=== PATIENT | male | born 1950 | race Caucasian/White ===

== ENCOUNTER → 2016-09-18 | Outpatient (CLI) | payer MEDICARE, OTHER ==
[~2016-09-18] MED LIST: ASPI1TAB PO; ATEN25TA PO; ATOR40TA PO; CHLO25TA PO; DIGO0.127 PO; DOXA1TAB72 PO; HCTZ/LOSARTAN PO; METF1000 PO; SITA50TAB PO; [UNRECOGNIZED DRUG - OTHER] TOP
[2016-09-18 18:29] LABS: ALBUMIN 4.2 GM/DL (3.2-5.2); ALKALINE PHOSPHATASE 61 U/L (45-117); ALT/SGPT 42 U/L (12-78); ANION GAP 7 MEQ/L (8-16); AST/SGOT 17 U/L (15-37); BILIRUBIN,DIRECT 0.3 MG/DL (0.0-0.2); BILIRUBIN,TOTAL 0.8 MG/DL (0.2-1.0); BLOOD UREA NITROGEN 16 MG/DL (7-18); CALCIUM LEVEL 8.9 MG/DL (8.8-10.2); CARBON DIOXIDE LEVEL 30 MEQ/L (21-32); CHLORIDE LEVEL 104 MEQ/L (98-107); CHOLESTEROL LEVEL 115 MG/DL (<200); CREATININE FOR GFR 0.91 MG/DL (0.70-1.30); GLOMERULAR FILTRATION RATE > 60.0 (>49); GLUCOSE, FASTING 120 MG/DL (80-110); MAGNESIUM LEVEL 1.8 MG/DL (1.8-2.4); PHOSPHORUS LEVEL 3.7 MG/DL (2.5-4.9); POTASSIUM SERUM 4.2 MEQ/L (3.5-5.1); SODIUM LEVEL 141 MEQ/L (136-145); TRIGLYCERIDES LEVEL 120 MG/DL (<150)
[2016-09-18 18:35] LABS: MEAN CORPUSCULAR HEMOGLOBIN 28.2 pg (27.0-33.0); MEAN CORPUSCULAR HGB CONC 32.6 g/dl (32.0-36.5); MEAN CORPUSCULAR VOLUME 86.7 fl (80.0-96.0); RED CELL DISTRIBUTION WIDTH 14.2 % (11.5-14.5); WHITE BLOOD COUNT 6.8 K/mm3 (4.0-10.0)
== END ==
LOC: M SMT 13:53
PROVIDERS: ATTEND Internal Medicine Cardiovascular Disease
DX: I25.10 Atherosclerotic heart disease of native coronary artery without angina pectoris (principal)

== ENCOUNTER → 2020-11-10 | Outpatient (CLI) | payer MEDICARE, OTHER ==
[~2020-11-10] MED LIST changes: -ASPI1TAB PO; +ASPI81TA26 PO; -ATOR40TA PO; +ATOR40TA75 PO; +DOXA1TAB67 PO; -DOXA1TAB72 PO; -METF1000 PO; +METF10004 PO
--- NOTE | 2020-11-10 12:54 | REP ---
INDICATION: CKD STAGE 2. COMPARISON: None. FINDINGS: Multiple ultrasonographic images of the right kidney show the right kidney to measure 13.7 x 5.4 x 3.8 cm. The renal cortical echotexture is unremarkable. There are no masses. There is good corticomedullary differentiation. There is no hydronephrosis. There are no perinephric fluid collections. Multiple ultrasonographic images of the left kidney show the left kidney to measure 11.3 x 5.4 x 4.7 cm. The renal cortical echotexture is unremarkable. There are no masses. There is good corticomedullary differentiation. There is no hydronephrosis. There are no perinephric fluid collections. There is a tiny 7 mm sized cyst in the superior pole the right kidney and a tiny 8 mm sized cyst in the inferior pole of the left kidney. IMPRESSION: Unremarkable renal ultrasonography. Tiny renal cysts as described above. <Electronically signed by Evans Arteaga > 11/10/20 [id number]
--- NOTE | 2020-11-10 13:00 | REP ---
INDICATION: PVR + PROST VOLUME. COMPARISON: None. TECHNIQUE: Transvesical scanning FINDINGS: There is no evidence of a large intra cystic mass or significant mucosal abnormality. Doppler of the UV junction shows uro jet phenomena bilaterally. The prevoid urinary bladder volume calculation is 272 cc and the postvoid calculation is 70.4 cc. This renders a 26% postvoid residual. The technologist noted the prostate gland measures 6.8 x 4.8 x 5.8 cm and seemingly enlarged by today's transvesical ultrasound exam. IMPRESSION: As above. <Electronically signed by Evans Arteaga > 11/10/20 [id number]
== END ==
LOC: M RAD 11:52
PROVIDERS: ATTEND Nurse Practitioner Family
DX: N18.2 Chronic kidney disease, stage 2 (mild) (principal); R33.9 Retention of urine, unspecified; N28.1 Cyst of kidney, acquired

== ENCOUNTER → 2020-12-29 | Outpatient (REF) | payer MEDICARE, OTHER ==
[2020-12-29 18:38] LABS: APPEARANCE, URINE CLEAR (CLEAR); BACTERIA, URINE AUTO NEGATIVE (NEGATIVE); BILIRUBIN, URINE AUTO NEGATIVE (NEGATIVE); BLOOD, URINE BLOOD NEGATIVE (NEGATIVE); COLOR, URINE YELLOW (YELLOW); GLUCOSE, URINE (UA) AUTO NEGATIVE (NEGATIVE); KETONE, URINE AUTO NEGATIVE (NEGATIVE); LEUKOCYTE ESTERASE, URINE AUTO NEGATIVE (NEGATIVE); MUCUS, URINE SMALL (NEGATIVE); NITRITE, URINE AUTO NEGATIVE (NEGATIVE); PROTEIN, URINE AUTO NEGATIVE (NEGATIVE); RBC, URINE AUTO 0 /HPF (0-3); SPECIFIC GRAVITY URINE AUTO 1.016 (1.002-1.035); SQUAMOUS EPITHELIAL CELL UR AU 0 /HPF (0-6); UROBILINOGEN, URINE AUTO 0.2 mg/dL (0.0-2.0); WBC, URINE AUTO 1 /HPF (0-3)
== END ==
LOC: M SMT 18:01
PROVIDERS: ATTEND Nurse Practitioner Family
DX: R35.1 Nocturia (principal)
CPT/HCPCS: 51798; 81001; 87086; G0463